=== PATIENT | female | born 1975 | race Caucasian/White ===

== ENCOUNTER 2017-06-30 07:58 | Observation (INO) | payer OTHER ==
[~2017-06-30] VITALS: Ht 177.8 cm; Wt 140.9 kg
[2017-06-30] VITALS (8 sets, daily range): BP systolic 122–140; BP diastolic 59–81
[~2017-06-30 07:58] MED LIST: ZESTORETIC 20-1 EAC2 PO
[2017-06-30 08:35] LABS: HEMATOCRIT 24.4 % (36.0-46.0); MCH 23.2 PG (29.0-34.0); MCHC 29.5 G/DL (30.0-36.0); MCV 78.7 FL (83-99); MEAN PLAT.VOLUME 8.6 uM^3 (9.5-12.4); PLATELET COUNT 328 K/uL (156-360); RBC DIS.WIDTH-CV 15.3 % (11.8-14.6); RBC DIS.WIDTH-SD 43.6 % (39-53); WHITE BLOOD COUNT 8.2 K/uL (4.1-10.2)
[2017-06-30 08:48] LABS: CHLORIDE 104 mEq/L (99-109); SODIUM 137 mEq/L (136-147)
[2017-06-30 08:50] LABS: GLUCOSE 139 mg/dL (70-99)
[2017-06-30 08:51] LABS: ANION GAP 10 MEQ/L (2-14)
[2017-06-30 08:52] LABS: TOTAL BILIRUBIN 0.3 mg/dL (0.0-1.0)
[2017-06-30 08:53] LABS: ALKALINE PHOSPHATASE 48 IU/L (3-129); GFR ESTIMATE (CALCULATED) > 59 mL/min/
[2017-06-30 08:55] LABS: UREA NITROGEN (BUN) 12 mg/dL (9-23)
[2017-06-30 08:56] LABS: CREATINE KINASE 32 IU/L (1-294); TOTAL CK 32 IU/L (1-294)
[2017-06-30 09:05] LABS: TROP-I INTERPRETATION NEGATIVE; TROPONIN-I < 0.01 ng/mL (0.0-0.30)
[2017-06-30 09:06] LABS: QUANTITATIVE HCG < 4.0 MIU/ML
[2017-06-30 09:07] LABS: CK-MB < 0.4 ng/mL (0.0-4.9)
[2017-06-30] MEDS ORDERED: SINGULAIR10 MG PO (11:25)
[2017-06-30] MEDS ORDERED: ENPRESSE1 EACH PO (11:26)
[2017-06-30] MEDS ORDERED: THERA1 EAC2 PO (11:27)
[2017-06-30] MEDS ORDERED: ONCE DAILY1 EACH PO (11:28)
[2017-06-30] MEDS ORDERED: POTASSIUM-9999 MG PO (11:31)
[2017-06-30] MEDS ORDERED: MAGNESIUM OXID200 MG PO (11:31)
[2017-06-30] MEDS ORDERED: FERROUS GLUCON240 MG PO (11:33)
[2017-06-30 11:47] LABS: IRON 18 MCG/DL (35-150)
[2017-06-30 19:30] LABS: HEMATOCRIT 25.9 % (36.0-46.0); MCV 79.9 FL (83-99)
[2017-07-01] VITALS (13 sets, daily range): BP systolic 115–146; BP diastolic 59–91
[2017-07-01 06:18] LABS: HEMATOCRIT 22.7 % (36.0-46.0); MCHC 30.8 G/DL (30.0-36.0); MCV 81.1 FL (83-99); MEAN PLAT.VOLUME 8.9 uM^3 (9.5-12.4); PLATELET COUNT 283 K/uL (156-360); RBC DIS.WIDTH-CV 15.5 % (11.8-14.6); RBC DIS.WIDTH-SD 44.9 % (39-53); WHITE BLOOD COUNT 7.5 K/uL (4.1-10.2)
[2017-07-01 07:02] LABS: ANION GAP 8 MEQ/L (2-14); CHLORIDE 109 MEQ/L (99-109); GFR ESTIMATE (CALCULATED) > 59 mL/min/; GLUCOSE 127 mg/dL (70-99); POTASSIUM 4.3 MEQ/L (3.7-5.4); SAMPLE HEMOLYSIS CHECK 0; SAMPLE ICTERIC CHECK 0; SAMPLE LIPEMIA CHECK 0; SODIUM 140 MEQ/L (136-147); UREA NITROGEN (BUN) 10 mg/dL (9-23)
== END 2017-07-01 17:20 | disposition home or self-care (01) ==
LOC: EME 07:58 → 2EAST 09:53 → EDOF 09:53 → ENRESERV 10:07 → 2EAST 11:51
PROVIDERS: Emergency Medicine; Family Medicine
PROC: 30233N1 Transfusion of Nonautologous Red Blood Cells into Peripheral Vein, Percutaneous Approach (ICD-10-PCS; principal; 2017-06-30)
DX: N93.8 Other specified abnormal uterine and vaginal bleeding (principal); D50.0 Iron deficiency anemia secondary to blood loss (chronic); R55 Syncope and collapse; D25.1 Intramural leiomyoma of uterus; I10 Essential (primary) hypertension; R00.0 Tachycardia, unspecified; Z68.41 Body mass index [BMI] 40.0-44.9, adult; E66.01 Morbid (severe) obesity due to excess calories
CPT/HCPCS: 76856; 80048; 80053; 82550; 82553; 83540; 84484; 84702; 85014; 85018; 85027; 86900; 86901; 86920; 93005; 99281; 99284; G0378; J7030; P9016

== ENCOUNTER 2017-08-28 20:52 | Inpatient (IN) | payer OTHER ==
[~2017-08-28] VITALS: Ht 177.8 cm; Wt 136.3 kg
[~2017-08-28 20:52] MED LIST changes: +ENPRESSE1 EACH PO; +FERROUS GLUCON240 MG PO; +MAGNESIUM OXID200 MG PO; +ONCE DAILY1 EACH PO; +POTASSIUM-9999 MG PO; +SINGULAIR10 MG PO; +THERA1 EAC2 PO
[2017-08-29 10:13] VITALS: BP 138/73
[2017-08-29 15:43] VITALS: BP 139/69
[2017-08-29 18:02] LABS: HEMATOCRIT 33.9 % (36.0-46.0); MCH 24.9 PG (29.0-34.0); MCHC 32.2 G/DL (30.0-36.0); MCV 77.4 FL (83-99); MEAN PLAT.VOLUME 8.8 uM^3 (9.5-12.4); PLATELET COUNT 291 K/uL (156-360); RBC DIS.WIDTH-CV 16.9 % (11.8-14.6); RBC DIS.WIDTH-SD 47.8 % (39-53); RED BLOOD COUNT 4.38 M/uL (3.80-5.20); WHITE BLOOD COUNT 12.1 K/uL (4.1-10.2)
[2017-08-29 18:31] LABS: ANION GAP 12 MEQ/L (2-14); CHLORIDE 103 MEQ/L (99-109); GFR ESTIMATE (CALCULATED) > 59 mL/min/; GLUCOSE 184 mg/dL (70-99); POTASSIUM 4.1 MEQ/L (3.7-5.4); SAMPLE HEMOLYSIS CHECK 0; SAMPLE ICTERIC CHECK 0; SAMPLE LIPEMIA CHECK 0; SODIUM 135 MEQ/L (136-147); UREA NITROGEN (BUN) 12 mg/dL (9-23)
[2017-08-29 19:21] VITALS: BP 141/78
[2017-08-29 23:50] VITALS: BP 105/59
[2017-08-30 03:43] VITALS: BP 110/55
[2017-08-30 06:44] LABS: MCH 23.6 PG (29.0-34.0); MCHC 30.6 G/DL (30.0-36.0); MCV 77.1 FL (83-99); MEAN PLAT.VOLUME 8.7 uM^3 (9.5-12.4); PLATELET COUNT 317 K/uL (156-360); RBC DIS.WIDTH-CV 17.1 % (11.8-14.6); RED BLOOD COUNT 4.15 M/uL (3.80-5.20); WHITE BLOOD COUNT 11.8 K/uL (4.1-10.2)
[2017-08-30 07:06] LABS: ANION GAP 11 MEQ/L (2-14); CHLORIDE 103 MEQ/L (99-109); GFR ESTIMATE (CALCULATED) > 59 mL/min/; GLUCOSE 157 mg/dL (70-99); POTASSIUM 4.2 MEQ/L (3.7-5.4); SAMPLE HEMOLYSIS CHECK 0; SAMPLE ICTERIC CHECK 0; SAMPLE LIPEMIA CHECK 0; SODIUM 136 MEQ/L (136-147); UREA NITROGEN (BUN) 9 mg/dL (9-23)
[2017-08-30 07:30] VITALS: BP 114/69
[2017-08-30 11:35] VITALS: BP 122/73
[2017-08-30 16:15] VITALS: BP 120/60
[2017-08-30 19:10] VITALS: BP 112/56
[2017-08-30 23:33] VITALS: BP 118/55
[2017-08-31 03:21] VITALS: BP 121/62
[2017-08-31 07:25] LABS: HEMATOCRIT 33.8 % (36.0-46.0); MCHC 30.5 G/DL (30.0-36.0); MCV 78.8 FL (83-99); MEAN PLAT.VOLUME 8.7 uM^3 (9.5-12.4); PLATELET COUNT 292 K/uL (156-360); RBC DIS.WIDTH-CV 17.9 % (11.8-14.6); RED BLOOD COUNT 4.29 M/uL (3.80-5.20); WHITE BLOOD COUNT 10.8 K/uL (4.1-10.2)
[2017-08-31 07:52] LABS: ANION GAP 10 MEQ/L (2-14); CHLORIDE 105 MEQ/L (99-109); GFR ESTIMATE (CALCULATED) > 59 mL/min/; GLUCOSE 122 mg/dL (70-99); SAMPLE HEMOLYSIS CHECK 0; SAMPLE ICTERIC CHECK 0; SAMPLE LIPEMIA CHECK 0; SODIUM 138 MEQ/L (136-147); UREA NITROGEN (BUN) 15 mg/dL (9-23)
[2017-08-31 08:00] VITALS: BP 131/79
[2017-08-31] MEDS ORDERED: TRAMADOL HCL50 MG PO (08:56)
== END 2017-08-31 09:56 | disposition home or self-care (01) | DRG 740 ==
LOC: ENRESERV 20:52 → 2SOUTH 08-29 08:57 → ENRESERV 08-29 13:49 → 2EASTP 08-29 15:34
PROVIDERS: Obstetrics & Gynecology Gynecologic Oncology
DX: C54.1 Malignant neoplasm of endometrium (principal); Z68.42 Body mass index [BMI] 45.0-49.9, adult; E66.01 Morbid (severe) obesity due to excess calories; J45.909 Unspecified asthma, uncomplicated
CPT/HCPCS: 36415; 80048; 84443; 85027; 86850; 86900; 86901; 86920; 88305; 88309; 94799; J0131; J0330; J0690; J1100; J1170; J1650; J1885; J2250; J2405; J2710; J2765; J3010; Q0175